=== PATIENT | male | born 1980 | race Two or more races ===

== ENCOUNTER 2024-11-07 09:20 | Day surgery (SDC) | payer MEDICAID ==
[~2024-11-07] VITALS: Ht 175.3 cm; Wt 91.7 kg
[2024-11-07 09:45] VITALS: BP 129/94; PULSE 80; RESP 16; TEMP 97.7; O2SAT 97
[2024-11-07] MEDS ORDERED: normal saline 1000ml 1,000 ML IV SCH (09:45)
[2024-11-07] MEDS ORDERED: atropine 0.1mg/ml 10ml syringe IV ONE (09:45)
[2024-11-07] MEDS ORDERED: fentaNYL/PF 50MCG/1 ML 2ML syringe IV ONE (09:45)
[2024-11-07] MEDS ORDERED: MIDAZolam 1mg/ml 10ml vial IV ONE (09:45)
[2024-11-07] MEDS ORDERED: glycopyrrolate 0.2mg/ml inj IV ONE (09:45)
[2024-11-07] MEDS ORDERED: CLOP-32 PO (09:48)
[2024-11-07] MEDS ORDERED: LISI20TA28 PO (09:48)
[2024-11-07] MEDS ORDERED: METF-900 PO (09:48)
[2024-11-07] MEDS ORDERED: ASPI-611 PO (09:48)
[2024-11-07] MEDS ORDERED: FLUT16SP2 BOTHNARES (09:48)
[2024-11-07] MEDS ORDERED: midazolam 1 mg/ML 2ml injection ONE (10:07)
[2024-11-07] MEDS ORDERED: fentaNYL/PF 50MCG/1 ML 2ML syringe ONE (10:08)
[2024-11-07 10:10] VITALS: RESP 16; O2SAT 97
[2024-11-07 10:13] LABS: MEAN PLATELET VOLUME 9.4 FL (7.4-10.4); RED CELL DISTRIBUTION WIDTH 14.4 % (11.5-14.5)
[2024-11-07 10:15] VITALS: BP 129/94; PULSE 80; RESP 16; TEMP 97.7
[2024-11-07 10:37] LABS: CREATININE 0.72 MG/DL (0.60-1.10); TOTAL CARBON DIOXIDE 29.0 MMOL/L (24-32); eCRCL 131 ML/MIN; eGFR > 90 ML/MIN
[2024-11-07 11:10] VITALS: BP 128/85; PULSE 87; RESP 16; O2SAT 95
[2024-11-07 11:20] VITALS: BP 123/81; PULSE 81; RESP 16; O2SAT 94
[2024-11-07 11:30] VITALS: BP 129/92; PULSE 86; RESP 16; O2SAT 96
[2024-11-07 11:30] LABS: INR 1.0 INR
--- NOTE | 2024-11-07 18:21 | CARDIOLOGY REPORT ---
APPROVED REPORT EXAM: Focused, limited transesophageal echocardiogram with color flow Doppler with saline study. 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 Overall systolic function appears to be normal. LVEF is 65%. RIGHT VENTRICLE RV is normal size and function. ATRIA Left atrium is mildly dilated. Modestly but not markedly mobile interatrial septum - ? Doppler flow d etected. Saline study was performed with 3 IV Injections of 10 ccs of agitated normal saline at rest, with cough, and with valsalva. Weekly positive saline study for right to left flow, unable to rever se with valsalva. AORTIC VALVE Trileaflet AV appears normal without obvious stenosis or insufficiency. MITRAL VALVE Normal MV annulus without stenosis. Trace regurgitation. TRICUSPID VALVE TV appears structurally normal with trace regurgitation. PULMONIC VALVE Grossly normal Pa and PV GREAT VESSELS Aortic root is normal in size. PERICARDIUM Normal pericardium. No effusion.
== END 2024-11-07 11:50 | disposition home or self-care (01) ==
LOC: SSTAY O 09:20 → EDSTATUS 11:00 → SSTAY O 11:50
PROVIDERS: ATTEND Internal Medicine Cardiovascular Disease
DX: Q21.12 Patent foramen ovale (principal); I10 Essential (primary) hypertension; E78.5 Hyperlipidemia, unspecified; G47.30 Sleep apnea, unspecified; Z79.01 Long term (current) use of anticoagulants; Z86.73 Personal history of transient ischemic attack (TIA), and cerebral infarction without residual deficits; Z98.890 Other specified postprocedural states; Z79.899 Other long term (current) drug therapy
CPT/HCPCS: 36415; 80048; 83735; 85025; 85610; 93312; 93325; 99152; J2250; J3010; J7030; 99153